=== PATIENT | female | born 1970 | race Caucasian/White ===

== ENCOUNTER 2021-09-09 15:46 | Emergency (ER) | payer OTHER ==
[2021-09-09] MEDS ORDERED: LIDOCAINE 5% TOPICAL PATCH TP ONE (16:09)
[2021-09-09] MEDS ORDERED: ACETAMINOPHEN 1000 MG/100 ML VIAL IVPB ONE (16:09)
[2021-09-09] MEDS ORDERED: SODIUM CHLORIDE 0.9% 1000 ML INFUS.BAG IV ONE (16:09)
[2021-09-09] MEDS ORDERED: morphine CARPU-JECT 4 MG/1 ML DISP.SYRIN IVPUSH ONE (16:09)
[2021-09-09 16:14] VITALS: BP 137/68; PULSE 66; TEMP 98.8; BMI 22.9
[2021-09-09] MEDS ORDERED: morphine SULFATE 4 MG/ML VIAL ONE (16:17)
[2021-09-09] MEDS ORDERED: LIDOCAINE 5% TOPICAL PATCH ONE (16:17)
[2021-09-09] MEDS ORDERED: ACETAMINOPHEN INJECTION 100 ML IVPB ONE (16:17)
[2021-09-09 16:53] LABS: BASO % 2.6 % (0-2.0); EOS % 1.8 % (0-4.5); HEMOGLOBIN 15.5 GM/dl (10.7-15.3); LYMPH % 28.7 % (8-40); MCH 30.5 pg (25.7-33.7); MCHC 34.3 g/dl (32.0-36.0); MEAN CELL VOLUME 88.9 fl (80-96); MONO % 3.9 % (3.8-10.2); PLATELET COUNT 324 10^3/uL (134-434); RBC 5.07 M/mm3 (3.60-5.2); RDW 11.3 % (11.6-15.6); WHITE BLOOD COUNT 7.3 K/mm3 (4.0-10.8)
[2021-09-09] MEDS ORDERED: ONDANSETRON 4 MG/2 ML VIAL IVPUSH ONE (17:02)
[2021-09-09] MEDS ORDERED: ONDANSETRON 4 MG/2 ML VIAL ONE (17:09)
[2021-09-09 17:20] LABS: ALBUMIN 3.5 g/dl (3.4-5.0); ALK PHOS 70 U/L (45-117); ANION GAP 12 MMOL/L (8-16); BILIRUBIN,TOTAL 0.4 mg/dl (0.2-1); CALCIUM 8.7 mg/dl (8.5-10); CHLORIDE 97 mmol/L (98-107); CO2 21 mmol/L (21-32); CREATININE 0.7 mg/dl (0.55-1.3); SGOT/AST 29 U/L (15-37); SGPT/ALT 30 U/L (13-61); SODIUM 130 mmol/L (136-145); TOT PROT 6.9 g/dl (6.4-8.2)
[2021-09-09 17:22] LABS: GLUCOSE,RANDOM 474 mg/dl (74-106)
[2021-09-09] MEDS ORDERED: INSULIN (NOVOLOG) ASPART 100 UNITS/ML 10ML VIAL SQ ONE (17:22)
[2021-09-09] MEDS ORDERED: INSULIN (NOVOLOG) ASPART 100 UNITS/ML 10ML VIAL ONE (17:25)
[2021-09-09 17:32] LABS: ACTIVATED PTT 27.4 SECONDS (25.2-36.5)
[2021-09-09 17:37] LABS: INR 1.24 (0.82-1.09); PROTHROMBIN TIME (PATIENT) 13.8 SEC (10.2-13.0)
[2021-09-09] MEDS ORDERED: LIDOCAINE PATCH REMOVAL MC SCH (22:00)
== END 2021-09-09 18:55 | disposition home or self-care (01) ==
LOC: FER 15:46
PROC: 3E0333Z Introduction of Anti-inflammatory into Peripheral Vein, Percutaneous Approach (ICD-10-PCS; principal; 2021-09-09)
PROC: 3E033NZ Introduction of Analgesics, Hypnotics, Sedatives into Peripheral Vein, Percutaneous Approach (ICD-10-PCS; 2021-09-09)
PROC: 3E033GC Introduction of Other Therapeutic Substance into Peripheral Vein, Percutaneous Approach (ICD-10-PCS; 2021-09-09)
DX: S20.211A Contusion of right front wall of thorax, initial encounter (principal); W19.XXXA Unspecified fall, initial encounter
CPT/HCPCS: 36415; 71260-TC; 80053; 82550; 82962; 84484; 85025; 85610; 85730; 86850; 86900; 86901; 93005; 96374; 96375; 99285-25; J0131